=== PATIENT | female | born 1955 | race Caucasian/White ===

== ENCOUNTER → 2018-03-19 08:16 | Outpatient (CLI) | payer BC ==
--- NOTE | ~2018-03-19 | ST ---
PATIENT:DAKOTA AUSTIN MEDICAL RECORD: [id number] SEX: F LOCATION:[facility] ORDER #: ADMISSION DATE: 03/19/18 AGE OF PATIENT: 63 REFERRING PHYSICIAN: INTERPRETING PHYSICIAN: MAHAD GORDON MD DATE OF SERVICE: 03/19/2018 PROCEDURE: Nuclear stress test. INDICATION: Chest pain, hypertension, palpitation. PROCEDURE DETAILS: She was exercised on standard [place] protocol for 8 minutes, terminated due to achievement of maximum target heart rate response with 33 mCi of sestamibi injected at peak stress and 11 mCi injected previously for rest images. FINDINGS: Gated SPECT reveals preserved ejection fraction at 64% with good wall motion and thickening and brightening throughout all segments. SPECT imaging Cardiolite was used as myocardial fusion agent. There is homogeneous uptake throughout all segments at rest and stress with no evidence of inducible ischemia or previous infarction. OVERALL IMPRESSION: 1. This is a normal nuclear stress test with no evidence of inducible ischemia or previous infarction. 2. Gated SPECT reveals a preserved ejection fraction at 64%. In this patient with ongoing symptomatology, the current scan does not suggest the presence of hemodynamically significant coronary artery disease. Evaluate noncardiac etiology of chest pain. TRANSINT:[id number] Voice Confirmation ID: [id number] DOCUMENT ID: [id number] MAHAD GORDON MD at 1025 CC: [id number] DICTATION DATE: 03/19/18 182 LEATHER STRETCHER: 03/20/18 0806 DEP CLI 03/19/18 [place] [id number]
== END | disposition home or self-care (01) ==
LOC: D.HCCARDIO 08:16
DX: Z03.89 Encounter for observation for other suspected diseases and conditions ruled out (principal)